=== PATIENT | female | born 1970 | race Two or more races ===

== ENCOUNTER 2017-12-01 20:56 | Emergency (ER) | payer MEDICAID ==
[~2017-12-01] VITALS: Ht 154.9 cm; Wt 79.4 kg
[2017-12-01 21:00] VITALS: BP 108/55
[2017-12-01] MEDS ORDERED: DiphenhydrAMINE 50mg/ml Inj IVP ONE (21:00)
[2017-12-01] MEDS ORDERED: Solu-MEDROL 125mg Inj IVP ONE (21:00)
[2017-12-01] MEDS ORDERED: PREDNISONE20 MG ORAL (21:02)
[2017-12-01] MEDS ORDERED: BENADRYL25 MG ORAL (21:02)
--- NOTE | 2017-12-01 21:02 | Emergency Room Report ---
History of Present Illness General Chief Complaint: Allergic Reaction Source: Patient, EMS Present Illness HPI Is a 47-year-old female with no significant past medical history. She presents with chief complaint of allergic reaction. She took some DayQuil and developed urticaria and shortness of breath. Also said she felt like her throat closing up. She called 911. EMS gave her IM epinephrine and Benadryl 25 mg rate also gave her albuterol treatment. She felt better now. She had this medication before. Never had this problem. No fever chills but no nausea no vomiting. Denies any other complaint. [place] itchy still. No chest pain. Shortness of breath resolved. Allergies: Coded Allergies: Broccoli (Verified Allergy, Unknown, 12/01/17) LEVETIRACETAM (Verified Allergy, Unknown, 12/01/17) MECLIZINE (Verified Allergy, Unknown, 12/01/17) METFORMIN (Verified Allergy, Unknown, 12/01/17) SPINACH (Verified Allergy, Unknown, 12/01/17) Patient History Past Medical History: see triage record, old chart reviewed Past Surgical History: other Pertinent Family History: none Social History: Denies: smoking Last Menstrual Period: november 20, 2017 Now: No Immunizations: other Reviewed Nursing Documentation: PMH: Agreed; PSxH: Agreed Nursing Documentation-PMH Past Medical History: No History, Except For Hx Neurological Problems: Yes - meningioma removed november 2012 Review of Systems Eye: Denies: eye pain, blurred vision ENT: Denies: ear pain, nose congestion, throat swelling Respiratory: Reports: shortness of breath; Denies: cough Cardiovascular: Denies: chest pain, palpitations Gastrointestinal: Denies: abdominal pain, diarrhea, nausea, vomiting Musculoskeletal: Denies: back pain, joint pain Skin: Reports: rash Neurological: Denies: headache, numbness Endocrine: Denies: increased thirst, increased urine Hematologic/Lymphatic: Denies: easy bruising All Other Systems: negative except mentioned in HPI Physical Exam Vital Signs Date Time Temp Pulse Resp B/P (MAP) Pulse Ox O2 Delivery O2 Flow Rate FiO2 12/01/17 20:50 98.4 107 16 141/80 100 Room Air 98.4 vitals with tachycardia Sp02 EP Interpretation: reviewed, normal General Appearance: well appearing, no apparent distress, alert Head: normocephalic, atraumatic Eyes: bilateral eye PERRL, bilateral eye EOMI ENT: hearing grossly normal, normal pharynx Neck: full range of motion, supple, no meningismus Respiratory: chest non-tender, lungs clear, normal breath sounds Cardiovascular #1: regular rate, rhythm, no murmur Gastrointestinal: normal bowel sounds, non tender, no mass, no organomegaly, no bruit, non-distended Musculoskeletal: back normal, gait/station normal, normal range of motion Psychiatric: mood/affect normal Skin: warm/dry Medical Decision Making Diagnostic Impression: Primary Impression: Allergic reaction Qualified Codes: T78.40XA - Allergy, unspecified, initial encounter ER Course Patient with allergic reaction. Probably secondary to [id number] cough and cold medicine. No evidence of respiratory failure. No evidence of distress now. We'll observe to make sure there is no rebound effect. If fine, we'll discharge home. Last Vital Signs Date Time Temp Pulse Resp B/P (MAP) Pulse Ox O2 Delivery O2 Flow Rate FiO2 12/01/17 20:50 98.4 107 16 141/80 100 Room Air 98.4 Status: improved Disposition: HOME, SELF-CARE Condition: Stable Scripts Prednisone* (PREDNISONE*) 20 Mg Tablet 60 MG ORAL DAILY, #12 TAB Prov: YVETTE RAY M.D. 12/01/17 Diphenhydramine Hcl* (BENADRYL*) 25 Mg Capsule 50 MG ORAL Q6H PRN for Itching, #30 CAP Prov: YVETTE RAY M.D. 12/01/17 Patient Instructions: Allergies Additional Instructions: Follow-up with your doctor in 2-3 days. Avoid DayQuil for now. Return if worse. YVETTE RAY M.D. Dec 01, 2017 21:02
[2017-12-01 21:40] VITALS: BP 110/61
[2017-12-01 22:56] VITALS: BP 108/62
[2017-12-01 22:57] VITALS: BP 108/62
== END 2017-12-01 21:35 | disposition home or self-care (01) ==
LOC: EDBD 20:56 → EMR 21:06
DX: T78.40XA Allergy, unspecified, initial encounter (principal); X58.XXXA Exposure to other specified factors, initial encounter; R21 Rash and other nonspecific skin eruption; Z88.8 Allergy status to other drugs, medicaments and biological substances
CPT/HCPCS: 96374; 96375; 99284; J1200; J2930